=== PATIENT | male | born 1980 | race Caucasian/White ===

== ENCOUNTER 2018-01-20 09:46 | Emergency (ER) | payer SELFPAY ==
[~2018-01-20] VITALS: Ht 167.6 cm; Wt 76.2 kg
[2018-01-20 09:48] VITALS: BP 128/88; Ht 167.6 cm; Wt 76.2 kg
== END 2018-01-20 11:31 | disposition home or self-care (01) ==
LOC: ED 09:46
DX: M65.4 Radial styloid tenosynovitis [de Quervain] (principal); R03.0 Elevated blood-pressure reading, without diagnosis of hypertension
CPT/HCPCS: J1885